=== PATIENT | male | born 1970 | race Caucasian/White ===

== ENCOUNTER 2017-05-05 11:32 | Emergency (ER) | payer OTHER ==
[~2017-05-05] VITALS: Ht 193 cm; Wt 95.3 kg
[~2017-05-05 11:32] MED LIST: IBUPROFEN 600600 M1 PO; NORCO 5-325 TA1 EACH PO
[2017-05-05 12:20] LABS: URINE BILIRUBIN NEGATIVE (Negative); URINE BLOOD NEGATIVE (Negative); URINE CLARITY CLEAR; URINE COLOR YELLOW; URINE GLUCOSE-RANDOM* NEGATIVE (Negative); URINE KETONES NEGATIVE (Negative); URINE LEUKOCYTES-REFLEX NEGATIVE (Negative); URINE NITRITE-REFLEX NEGATIVE (Negative); URINE PROTEIN (DIPSTICK) NEGATIVE (Negative); URINE SPECIFIC GRAVITY >= 1.030 (1.005-1.035); URINE UROBILINOGEN 0.2 E.U./dl (0.2-1.0)
[2017-05-05 12:28] LABS: ABSOLUTE NEUTROPHILS 5.4 thou/uL (1.4-8.2); BASOPHILS 0.9 % (0.0-2.0); EOSINOPHILS 3.9 % (0.0-3.0); HEMATOCRIT 41.3 % (42.0-52.0); HEMOGLOBIN 14.6 gm/dL (14.0-18.0); LYMPHOCYTES 22.6 % (24.0-44.0); MCH 33.7 pg (26.0-34.0); MCHC 35.3 g/dL (28.0-37.0); MCV 95.5 fL (80.0-100.0); MONOCYTES 11.2 % (1.0-8.0); PLATELET COUNT 193 thou/uL (150-400); POLYS 61.4 % (36.0-66.0); RBC 4.33 mil/uL (4.50-6.00); RDW 12.8 % (10.5-14.5); WBC 8.7 thou/uL (4.0-11.0)
[2017-05-05 12:30] LABS: CALCIUM 9.1 mg/dL (8.5-10.1); POTASSIUM 4.1 mmol/L (3.5-5.1)
[2017-05-05 12:30] LABS: AMP/METHAMP POSITIVE (Negative); BARBITURATES Negative (Negative); BENZODIAZEPINES Negative (Negative); COCAINE Negative (Negative); METHADONE Negative (Negative); OPIATES Negative (Negative); PCP Negative (Negative)
[2017-05-05 12:36] LABS: ALBUMIN 3.4 g/dL (3.4-5.0); TOTAL BILIRUBIN 0.9 mg/dL (<0.1-1.0); TOTAL PROTEIN 7.8 g/dL (6.4-8.2)
[2017-05-05] MEDS ORDERED: NORFLEX100 MG PO (13:10)
[2017-05-05] MEDS ORDERED: NAPROSYN500 MG PO (13:10)
[2017-05-05] MEDS ORDERED: TRAMADOL 50 MG50 MG PO (13:10)
== END 2017-05-05 13:31 | disposition home or self-care (01) ==
LOC: ER 11:32
PROVIDERS: Emergency Medicine
DX: M54.5 Low back pain (principal); B18.2 Chronic viral hepatitis C; F17.210 Nicotine dependence, cigarettes, uncomplicated; Z87.442 Personal history of urinary calculi

== ENCOUNTER 2017-05-20 14:18 | Emergency (ER) | payer OTHER ==
[~2017-05-20] VITALS: Ht 190.5 cm; Wt 97.5 kg
[~2017-05-20 14:18] MED LIST changes: +NAPROSYN500 MG PO; +NORFLEX100 MG PO; +TRAMADOL 50 MG50 MG PO
[2017-05-20 15:01] LABS: ABSOLUTE NEUTROPHILS 7.5 thou/uL (1.4-8.2); EOSINOPHILS 5.9 % (0.0-3.0); HEMOGLOBIN 13.7 gm/dL (14.0-18.0); LYMPHOCYTES 21.1 % (24.0-44.0); MCH 32.5 pg (26.0-34.0); MCHC 34.2 g/dL (28.0-37.0); MONOCYTES 6.6 % (1.0-8.0); PLATELET COUNT 228 thou/uL (150-400); POLYS 65.4 % (36.0-66.0); RBC 4.21 mil/uL (4.50-6.00); RDW 12.7 % (10.5-14.5); WBC 11.5 thou/uL (4.0-11.0)
[2017-05-20 15:05] LABS: ANION GAP 8 mmol/L (7-16); BUN 11 mg/dL (7-18); CHLORIDE 106 mmol/L (98-107); CO2 23 mmol/L (21-32); CREATININE 1.2 mg/dL (0.7-1.3); GLUCOSE 107 mg/dL (74-106); POTASSIUM 4.3 mmol/L (3.5-5.1); SODIUM 137 mmol/L (136-145)
[2017-05-20 15:11] LABS: ALBUMIN 3.5 g/dL (3.4-5.0); SALICYLATE < 2.8 mg/dL (2.8-20.0); SGOT 32 U/L (15-37); SGPT 34 U/L (30-65); TOTAL BILIRUBIN 0.4 mg/dL (<0.1-1.0); TOTAL PROTEIN 7.5 g/dL (6.4-8.2)
[2017-05-20 15:15] LABS: APTT 25.5 Seconds (24.5-32.8); PROTIME 9.8 Seconds (9.3-11.4)
[2017-05-20 17:41] LABS: URINE BILIRUBIN NEGATIVE (Negative); URINE BLOOD TRACE (Negative); URINE CLARITY CLEAR; URINE COLOR YELLOW; URINE GLUCOSE-RANDOM* NEGATIVE (Negative); URINE KETONES NEGATIVE (Negative); URINE LEUKOCYTES NEGATIVE (Negative); URINE NITRITE NEGATIVE (Negative); URINE PROTEIN (DIPSTICK) NEGATIVE (Negative); URINE SPECIFIC GRAVITY 1.015 (1.005-1.035); URINE UROBILINOGEN 0.2 E.U./dl (0.2-1.0)
[2017-05-20 17:50] LABS: AMP/METHAMP POSITIVE (Negative); BARBITURATES Negative (Negative); BENZODIAZEPINES Negative (Negative); COCAINE Negative (Negative); METHADONE Negative (Negative); OPIATES POSITIVE (Negative); PCP Negative (Negative)
== END 2017-05-20 17:24 | disposition short-term general hospital (02) ==
LOC: ER 14:18
PROVIDERS: Emergency Medicine
DX: S42.002A Fracture of unspecified part of left clavicle, initial encounter for closed fracture (principal); S22.32XA Fracture of one rib, left side, initial encounter for closed fracture; F17.210 Nicotine dependence, cigarettes, uncomplicated; F10.99 Alcohol use, unspecified with unspecified alcohol-induced disorder; Z87.442 Personal history of urinary calculi; V29.9XXA Motorcycle rider (driver) (passenger) injured in unspecified traffic accident, initial encounter; Y93.89 Activity, other specified; Y92.89 Other specified places as the place of occurrence of the external cause; Y99.8 Other external cause status

== ENCOUNTER 2019-07-27 07:29 | Emergency (ER) | payer OTHER ==
[~2019-07-27] VITALS: Ht 193 cm; Wt 99.8 kg
[2019-07-27 08:42] LABS: URINE BILIRUBIN NEGATIVE (Negative); URINE BLOOD NEGATIVE (Negative); URINE CLARITY CLEAR; URINE COLOR YELLOW; URINE GLUCOSE-RANDOM* NEGATIVE (Negative); URINE KETONES NEGATIVE (Negative); URINE LEUKOCYTES-REFLEX NEGATIVE (Negative); URINE NITRITE-REFLEX NEGATIVE (Negative); URINE PROTEIN (DIPSTICK) NEGATIVE (Negative); URINE SPECIFIC GRAVITY >= 1.030 (1.005-1.035); URINE UROBILINOGEN 0.2 E.U./dl (0.2-1.0)
[2019-07-27] MEDS ORDERED: LIDODERM1 EACH TOP (09:09)
[2019-07-27] MEDS ORDERED: FLEXERIL PO (09:09)
[2019-07-27] MEDS ORDERED: NORCO 5-325 TA1 EAC1 PO (09:09)
[2019-07-27 09:48] VITALS: BP 140/82
== END 2019-07-27 09:48 | disposition home or self-care (01) ==
LOC: ER 07:29
PROVIDERS: Emergency Medicine Emergency Medical Services
DX: M54.41 Lumbago with sciatica, right side (principal); M54.42 Lumbago with sciatica, left side; F17.210 Nicotine dependence, cigarettes, uncomplicated; Z87.442 Personal history of urinary calculi